=== PATIENT | male | born 1995 | race Caucasian/White ===

== ENCOUNTER → 2018-08-13 21:08 | Emergency (ER) | payer OTHER ==
--- NOTE | 2018-08-13 23:24 | ED ---
Lower Extremity - HPI Summary HPI Summary: 22-year-old male presents with complaints of left ankle pain. States around 8: 00 this evening he was descending some stairs and he missed the bottom step causing an inversion injury to his ankle. He was able to bear weight immediately after the injury however states since that time he has been unable due to the pain. Reports swelling to the lateral left ankle. He did take some ibuprofen immediately after the injury with some relief in the pain. Denies any numbness or tingling. - History of Current Complaint Chief Complaint: EDExtremityLower Stated Complaint: LEFT ANKLE INJURY PER PT Hx Obtained From: Patient Pain Intensity: 2 - Allergies/Home Medications Allergies/Adverse Reactions: Allergies Allergy/AdvReac Type Severity Reaction Status Date / Time No Known Allergies Allergy Verified 08/13/18 21:18 PMH/Surg Hx/FS Hx/Imm Hx Previously Healthy: Yes - Denies significant PMH Infectious Disease History: No Infectious Disease History: Denies: Traveled Outside the [place] in Last 30 Days - Family History Known Family History: Positive: Non-Contributory - Social History Occupation: Employed Full-time Lives: With Family Alcohol Use: unknown Substance Use Type: Reports: None Smoking Status (MU): Never Smoked Tobacco Review of Systems Constitutional: Negative Cardiovascular: Negative Respiratory: Negative Gastrointestinal: Negative Genitourinary: Negative Positive: Other - See HPI Neurological: Negative All Other Systems Reviewed And Are Negative: Yes Physical Exam - Summary Physical Exam Summary: GENERAL APPEARANCE: Well developed, well nourished, alert and cooperative, and appears to be in no acute distress. CARDIAC: Normal S1 and S2. No S3, S4 or murmurs. Rhythm is regular. There is no peripheral edema, cyanosis or pallor. Extremities are warm and well perfused. Capillary refill is less than 2 seconds. Peripheral pulses intact. LUNGS: Clear to auscultation without rales, rhonchi, wheezing or diminished breath sounds. ABDOMEN: Positive bowel sounds. Soft, nondistended, nontender. No guarding or rebound. No masses or hepatosplenomegally. MUSKULOSKELETAL: Normal muscular development. Limping gait. EXTREMITIES: Mild tenderness to the left lateral malleolus with moderate edema and ecchymosis. Circulation and sensation were intact. SKIN: Skin normal color, texture and turgor with no lesions or eruptions. Triage Information Reviewed: Yes Vital Signs On Initial Exam: Initial Vitals Temp Pulse Resp BP Pulse Ox 97.9 F 123 18 154/102 98 08/13/18 21:16 08/13/18 21:16 08/13/18 21:16 08/13/18 21:16 08/13/18 21:16 Vital Signs Reviewed: Yes Diagnostics - Vital Signs Vital Signs Temp Pulse Resp BP Pulse Ox 08/13/18 21:16 97.9 F 123 18 154/102 98 - Laboratory Lab Statement: Any lab studies that have been ordered have been reviewed, and results considered in the medical decision making process. - Radiology No standard instances Radiology Interpretation Completed By: ED Physician - No acute fracture. Lower Extremity Course/Dx - Course Course Of Treatment: 22-year-old male presents with complaints of left ankle pain. States around 8:00 this evening he was descending some stairs and he missed the bottom step causing an inversion injury to his ankle. He was able to bear weight immediately after the injury however states since that time he has been unable due to the pain. Reports swelling to the lateral left ankle. He did take some ibuprofen immediately after the injury with some relief in the pain. Denies any numbness or tingling. Afebrile. Vital signs stable. Patient had mild tenderness to the left lateral malleolus with moderate edema and ecchymosis. Circulation and sensation were intact. X-ray showed no acute fracture. Recommend conservative treatment for a left ankle sprain. Patient was placed in a stirrup splint by the RN. Circulation and sensation were intact pre-and post-application. Patient was given crutches for progressive weightbearing. Recommending [id number] analgesics and RICE. Patient is to follow-up with orthopedic surgery in 7 days if symptoms are not improving. Anticipatory guidance and warning symptoms were reviewed with the patient. Verbalizes understanding and agrees with plan of care. - Diagnoses Differential Diagnosis/HQI/PQRI: Positive: Contusion, Fracture (Closed), Sprain Provider Diagnoses: Left ankle sprain Discharge - Sign-Out/Discharge Documenting (check all that apply): Patient Departure Patient Received Moderate/Deep Sedation with Procedure: No - Discharge Plan Condition: Stable Disposition: HOME Patient Education Materials: Ankle Sprain (ED), Crutch Instructions (ED) Referrals: No Primary Care Phys,NOPCP [Primary Care Provider] - Dotty Wood MD [Medical Doctor] - 7 Days Additional Instructions: The x-ray performed in the clinic today showed no evidence of a fracture. I suspect that you have a sprain of the ankle. Rest the ankle as much as possible. Wear the stirrup splint applied in the emergency room until you are pain-free. Apply ice to the affected area for 15-20 minutes at least 4 times a day to help with the pain and swelling. Elevate the foot to help reduce swelling. Take acetaminophen (Tylenol) or ibuprofen (Advil, Motrin) according to directions as needed for pain. Follow up with orthopedic surgery in 7 days if symptoms do not improve. Seek immediate medical attention if you have severe pain not managed with pain medication, you are unable to walk or bear any weight, develop numbness or tingling in the foot or toes, or have any worsening of symptoms. - Billing Disposition and Condition Condition: STABLE Disposition: Home
[2018-08-13 23:41] VITALS: BP 135/77
== END | disposition home or self-care (01) ==
LOC: ED 21:08
DX: S93.402A Sprain of unspecified ligament of left ankle, initial encounter (principal); X50.1XXA Overexertion from prolonged static or awkward postures, initial encounter
CPT/HCPCS: 99282